=== PATIENT | female | born 1970 | race Caucasian/White ===

== ENCOUNTER 2017-07-12 19:29 | Emergency (ER) | payer OTHER ==
[~2017-07-12] VITALS: Ht 152.4 cm; Wt 73.1 kg
[~2017-07-12 19:29] MED LIST: ENDOCET 5-3251 EACH PO; FERROUS SULFAT134 MG PO; IBUPROFEN800 MG PO; NOHOMEMEDS; TRAMADOL HCL50 MG PO
[2017-07-12 20:13] LABS: HEMATOCRIT 38.9 % (36.0-46.0); MCH 31.5 PG (29.0-34.0); MCHC 35.2 G/DL (30.0-36.0); MCV 89.4 FL (83-99); MEAN PLAT.VOLUME 10.2 uM^3 (9.5-12.4); PLATELET COUNT 289 K/uL (156-360); RBC DIS.WIDTH-CV 12.8 % (11.8-14.6); RBC DIS.WIDTH-SD 42.2 % (39-53); RED BLOOD COUNT 4.35 M/uL (3.80-5.20); WHITE BLOOD COUNT 9.6 K/uL (4.1-10.2)
[2017-07-12 20:25] LABS: CHLORIDE 103 mEq/L (99-109); SODIUM 139 mEq/L (136-147)
[2017-07-12 20:26] LABS: GLUCOSE 156 mg/dL (70-99)
[2017-07-12 20:28] LABS: ANION GAP 15 MEQ/L (2-14)
[2017-07-12 20:30] LABS: GFR ESTIMATE (CALCULATED) > 59 mL/min/
[2017-07-12 20:31] LABS: UREA NITROGEN (BUN) 15 mg/dL (9-23)
[2017-07-12 20:33] LABS: POTASSIUM 3.5 mEq/L (3.7-5.4)
[2017-07-12 20:34] LABS: TROP-I INTERPRETATION NEGATIVE; TROPONIN-I < 0.01 ng/mL (0.0-0.30)
[2017-07-13 00:05] VITALS: BP 201/101
== END 2017-07-13 00:08 | disposition home or self-care (01) ==
LOC: EME 19:29
DX: R07.9 Chest pain, unspecified (principal); I51.7 Cardiomegaly; F17.200 Nicotine dependence, unspecified, uncomplicated; Z88.1 Allergy status to other antibiotic agents
CPT/HCPCS: 71020; 80048; 84484; 85027; 93005; 99281; 99284